=== PATIENT | male | born 1990 ===

== ENCOUNTER 2022-09-02 06:20 | Day surgery (SDC) | payer OTHER ==
[~2022-09-02] VITALS: Ht 175.3 cm; Wt 99.8 kg
== END 2022-09-02 20:10 | disposition home or self-care (01) ==
LOC: CIR.AMB 06:20
PROVIDERS: ATTEND Orthopaedic Surgery Hand Surgery
DX: S62.512A Displaced fracture of proximal phalanx of left thumb, initial encounter for closed fracture (principal); Z20.822 Contact with and (suspected) exposure to COVID-19; I10 Essential (primary) hypertension; E11.9 Type 2 diabetes mellitus without complications; E78.00 Pure hypercholesterolemia, unspecified